=== PATIENT | female | born 1980 | race Caucasian/White ===

== ENCOUNTER → 2024-02-01 18:22 | Outpatient (REF) | payer MEDICARE, MEDICAID, SELFPAY | LOC: MRI 18:22 | PROVIDERS: ATTENDING PHYSICIAN Neurological Surgery; FAMILY PHYSICIAN Nurse Practitioner Adult Health | DX: M54.16 Radiculopathy, lumbar region (principal) | CPT/HCPCS: 72148 ==

== ENCOUNTER → 2024-02-04 16:19 | Outpatient (REF) | payer MEDICARE, MEDICAID, SELFPAY | LOC: RAD 16:19 | PROVIDERS: ATTENDING PHYSICIAN Neurological Surgery; FAMILY PHYSICIAN Nurse Practitioner Adult Health | DX: M54.16 Radiculopathy, lumbar region (principal) | CPT/HCPCS: 72110 ==

== ENCOUNTER 2024-05-08 21:03 | Emergency (ER) | payer MEDICARE, SELFPAY ==
[2024-05-08 21:11] VITALS: BP 124/75
[2024-05-08 22:42] VITALS: BP 114/61
--- NOTE | 2024-05-08 22:53 | ED.GENMED ---
History of Present Illness
<JOANIE Joyner - Last Filed: 05/09/24 04:45>
General
Chief Complaint: Abdominal Pain
Source: patient and family (daughter)
Time Seen by Provider: 05/08/24 22:51
History of Present Illness
History of Present Illness:
Pt is a 43 y/o F with PMHx of celiac disease x23 years and Colitis x3-4 years with complaints of diffuse left sided abdominal pain x4 days. The pain is associated with abdominal bloating, nausea, vomiting, fatigue, malaise, poor appetite, and
orthopnea. The abdominal pain is rated a 5/10 and is worsened with eating food. The left sided abdominal pain radiates into her left sided back and buttock. Course of abdominal pain is worsening. She noted 1 episode of vomiting since onset of
abdominal pain and reported that the emesis was yellow and 'contained bile.' She denies chest pain, headache, diarrhea, constipation, change in urination.
The patient has a pmhx of Celiac disease x23 years, colitis x3-4 years, and pancreatitis x1 year. She also has a history of diabetes and thyroid disorder. The patient's last meal was sweet potato fries for lunch but otherwise she has not eaten since
Sunday or Sunday. LMP was 2 weeks ago but reported that it was unusual and was brown in color. She currently smokes 1/4 PPD and is a nondrinker.
Past History
<JOANIE Joyner - Last Filed: 05/09/24 04:45>
Past History
ED Past Medical History: COPD (Emphysema), Hypercholesterolemia, Other (complex regional pain syndrome, vitamin B12 deficiency) and Other (PAT, hep C., MRSA)
ED Past Surgical History: Orthopedic (Left knee arthroscopy)
Social History
Tobacco: Smoker (08/30 PPD)
Alcohol: None
Drug: Narcotics (Currently taking methadone )
Personal:
Living: with family
Employment: Disabled
Review of Systems
<JOANIE Joyner - Last Filed: 05/09/24 04:45>
Review of Systems
Constitutional: Reports fatigue
EENT: Reports no symptoms
Respiratory: Reports trouble breathing
Cardiac: Reports no symptoms
ABD/GI: Reports abdominal pain, nausea and vomiting
: Reports flank pain
Musculoskeletal: Reports back pain
Skin: Reports no symptoms
Neurological: Reports weakness
Endocrine: Reports no symptoms
Hematologic/Lymphatic: Reports no symptoms
Psychiatric: Reports no symptoms
Phy Exam
<JOANIE Joyner - Last Filed: 05/09/24 04:45>
General Physical Exam
General Presentation: moderate distress
General age: appears stated age
General Skin: warm and dry
General Mental: alert
Cardiovascular Exam
Cardiovascular Exam: regular rate/rhythm and normal peripheral pulses
Pulmonary Exam
Pulmonary Exam: no respiratory distress and chest non tender
Gastrointestinal Exam
Gastrointestinal Exam: no pulsatile mass, distended and tender
Palpation: left upper quadrant: Moderate tenderness, left lower quadrant: Moderate tenderness, right upper quadrant: Minimal tenderness and right lower quadrant: Minimal tenderness
Auscultation of Abdomen: hypoactive
Neurological Exam
Neurological Exam: alert, oriented x3 and speech normal
Skin Exam
Skin Exam: normal color and warm/dry
Psychiatric Exam
Psychiatric Exam: normal mood/affect
Course
<JOANIE Joyner - Last Filed: 05/09/24 04:45>
Orders/Labs/Results
Orders:
Orders
05/08/24 21:16
Test Result ONCE
05/08/24 22:48
Complete Blood Count/With Diff Urgent
Comprehensive Metabolic Panel Urgent
HCG, Serum Qualitative Screen Urgent
Lipase Urgent
05/08/24 23:56
0.9% Sodium Chloride 1000 ml [Nss] 1,000 ml IV BOLUS
05/08/24 23:58
0.9% Sodium Chloride 1000 ml [Nss] 1,000 ml IV BOLUS
05/09/24 00:30
CT Abd/pelvis W Iv Cont Urgent
Reason For Exam: LLQ abd pain
05/09/24 01:07
Ondansetron Injectable [Zofran] 4 mg IV NOW STA
Abnormal Lab Results
05/08/24
22:48
MPV 10.5 H fL
(7.4-10.4)
Absolute Monos (auto) 0.9 H 10^3/uL
(0.1-0.6)
Monocytes % 12.2 H %
(1.7-9.3)
Glucose 103 H mg/dl
(70-99)
05/08/24 22:48
05/08/24 22:48
Vital Signs
Initial and Last Documented VS:
Initial Vital Signs
Temp Pulse Resp BP Pulse Ox
98.6 F 90 18 124/75 97
05/08/24 21:11 05/08/24 21:11 05/08/24 21:11 05/08/24 21:11 05/08/24 21:11
Last Documented Vital Signs
Temp Pulse Resp BP Pulse Ox
98.6 F 90 18 112/75 92
05/08/24 21:11 05/08/24 21:11 05/08/24 21:11 05/09/24 00:00 05/09/24 00:15
<Manuel Martin, DO - Last Filed: 05/09/24 01:04>
Orders/Labs/Results
Orders:
Orders
05/08/24 21:16
Test Result ONCE
05/08/24 22:48
Complete Blood Count/With Diff Urgent
Comprehensive Metabolic Panel Urgent
HCG, Serum Qualitative Screen Urgent
Lipase Urgent
05/08/24 23:56
0.9% Sodium Chloride 1000 ml [Nss] 1,000 ml IV BOLUS
05/08/24 23:58
0.9% Sodium Chloride 1000 ml [Nss] 1,000 ml IV BOLUS
05/09/24 00:30
CT Abd/pelvis W Iv Cont Urgent
Reason For Exam: LLQ abd pain
05/09/24 01:07
Ondansetron Injectable [Zofran] 4 mg IV NOW STA
Abnormal Lab Results
05/08/24
22:48
MPV 10.5 H fL
(7.4-10.4)
Absolute Monos (auto) 0.9 H 10^3/uL
(0.1-0.6)
Monocytes % 12.2 H %
(1.7-9.3)
Glucose 103 H mg/dl
(70-99)
05/08/24 22:48
05/08/24 22:48
Vital Signs
Initial and Last Documented VS:
Initial Vital Signs
Temp Pulse Resp BP Pulse Ox
98.6 F 90 18 124/75 97
05/08/24 21:11 05/08/24 21:11 05/08/24 21:11 05/08/24 21:11 05/08/24 21:11
Last Documented Vital Signs
Temp Pulse Resp BP Pulse Ox
98.6 F 90 18 112/75 92
05/08/24 21:11 05/08/24 21:11 05/08/24 21:11 05/09/24 00:00 05/09/24 00:15
<JOANIE Joyner - Last Filed: 05/09/24 04:45>
MDM/Problems Addressed
Differential Diagnosis Includes:
Enteritis
Diverticulitis
Peritonitis
Large bowel obstruction
<JOANIE Joyner - Last Filed: 05/09/24 04:45>
*Critical Care Note
Total Time (30-74mins, 75-104mins- exclusive of procedures): Not Applicable
<Manuel Martin DO - Last Filed: 05/09/24 01:04>
Update Note
Update Note:
CT AP with contrast
Comparison: 01/31/2023
IMPRESSION:
Slightly prominent fluid in the small bowel can be seen with enteritis or malabsorption but not specific.
Normal appendix.
No calcified gallstones.
No bowel obstruction or bowel wall thickening.
No obstructive urolithiasis.
No free fluid nor free air.
ED Attending Note
<JOANIE Joyner - Last Filed: 05/09/24 04:45>
-
Portions of this chart may have been created with voice recognition software.� Occasional wrong word or��sound alike� substitutions may have occurred due to the inherent limitations of voice recognition software.
<Manuel Martin DO - Last Filed: 05/09/24 01:04>
ED Attending Note
Patient seen and examined by attending physician: Yes
I performed the substantive portion of visit, reviewed & personally made and approve the management plan that is documented in note by myself or LISS.: Yes
ED Attending Note:
Pleasant 43-year-old female presents to the emergency department with left lower quadrant abdominal pain. She states that her pain began on Sunday and has progressively worsening. She states that she has had some abdominal bloating with some
nausea and vomiting. She had a poor appetite. She reports the pain is worse when eating food. She did have 1 episode of none bloody vomitus. She states that it contained bile. Reports no chest pain or shortness of breath. States that the pain
is higher than her typical menstrual cramping.
Vital signs are stable. Patient not hypoxic
Nursing note reviewed. I agree with nursing documentation up to this point in time.
Home Meds and allergies reviewed.
NUMBER AND COMPLEXITY OF PROBLEMS ADDRESSED AT THE ENCOUNTER
� Chronic conditions affecting care: COPD, hyperlipidemia, tobacco use, methadone use, celiac disease
� Acute Exacerbation and/or Progression of Chronic Illness: Celiac disease
� Differential Diagnosis includes: Diverticulitis, IBS, Crohn's/celiac flareup, gastroenteritis
AMOUNT AND/OR COMPLEXITY OF DATA TO BE REVIEWED AND ANALYZED
I performed an independent evaluation of the following and my interpretation is:
EKG:
CT:
X-rays:
Ultrasound:
Laboratory Studies:
Other:
Review of other/old records:
Clinical information was obtained by an independent historian:
Prescriptions/Medications Considered but not given:
Further testing considered but not performed:
RISK OF COMPLICATIONS AND/OR MORBIDITY OR MORTALITY OF PATIENT MANAGEMENT
Social determinants of health affecting care: Good Social Support
Discussion with other providers:
Escalation of care including admission/observation vs risk of discharge considered:
CRITICAL CARE NOTE:
Total Time (exclusive of procedures):
Update:
Discharge Plan
Departure
Patient Disposition: Home (Routine Discharge)
Date of Disposition: 05/09/24
Time of Disposition: 00:59
Patient with high blood pressure during this ER visit?: Yes
Condition: Good
Discharge Problem:
Enteritis
Instructions: Viral gastroenteritis in adults, Abdominal Pain
Prescriptions:
New
ondansetron 4 mg tablet,disintegrating
4 mg PO QID PRN (Reason: nausea and vomiting) Qty: 14 0RF
No Action
omeprazole 40 MG capsule,delayed release(DR/EC)
40 mg PO DAILY
methadone [Methadose] 100 MG/10 ML concentrate
156 mg PO BID@0500,1600
Patient Comments:
01/31/2023: Pt goes to [facility] [phone]. Hours Mo-Fr [id number], Sa [id number], [facility]
ferrous sulfate [FeroSul] 325 MG tablet
325 mg PO DAILY Qty: 30 0RF
quetiapine 25 mg tablet
25 mg PO HS
celecoxib 200 mg capsule
200 mg PO BID
metformin 500 mg tablet
500 mg PO DAILY
baclofen 10 mg tablet
10 mg PO BID
sertraline 25 mg tablet
25 mg PO DAILY
Rx Instructions:
taken w/ 50mg = 75mg
albuterol sulfate 90 mcg/actuation HFA aerosol inhaler
2 puff INHALATION R Q4 PRN (Reason: sob)
guanfacine 2 mg tablet
2 mg PO HS
sertraline 50 mg tablet
50 mg PO DAILY
Rx Instructions:
taken w/ 25mg = 75mg
prazosin 2 mg capsule
2 mg PO HS
Breztri Aerosphere 160-9-4.8 mcg/actuation HFA aerosol inhaler
2 inh INHALATION R BID
Medical Marijuana
1 puff inhalation HS PRN (Reason: mild pain/sleep)
Patient Comments:
01/31/2023: Pt smokes before bed. Pt uses [facility] [phone]
Referrals:
[facility] [Outside]
[facility] [Outside]
NONE,* [Family Provider] -
Activity Restrictions/Additional Instructions:
It was a pleasure meeting you and taking part in your care. We hope for your continued healing and wellness.
Please read discharge instructions in their entirety. However, they are for general education and may not describe your exact diagnosis at discharge. Information on your ER visit and medical conditions were discussed with you along with appropriate
follow up information...
If indicated, please take your medications as instructed and indicated on discharge paperwork.
Please schedule a follow up appointment as directed. Call to schedule an appointment
Please return to the emergency department with ANY change in, persisting, or worsening of symptoms. If any of your symptoms do not improve, or persist, or become more severe within 6-12 hours, please return to the emergency department for further
care.
Please return to the emergency department if you develop a headache, neck pain/stiffness, fever greater than 100.4F, chest pain, shortness of breath, persistent nausea, vomiting, slurred speech, difficulty walking, numbness/tingling, weakness, signs
of infection or any other symptoms that are worrisome to you.
If you have any questions or concerns please do not hesitate to call the Hospital at or E-mail me directly at [email or web address]
Interventions
Interventions:
*Risk Screen - Suicide Last Done: 05/08/24 21:11
*General Assessment Last Done: 05/08/24 21:11
*Neglect/Abuse Screening Last Done: 05/08/24 21:11
*Nursing Disposition Last Done: 05/09/24 01:52
[id number] Assessment Last Done: 05/09/24 00:14
Discharge Date and Time
Discharge Date/Time: 05/09/24 01:52
Print Language: YORUBA
[2024-05-08 22:55] LABS: % Basophils 0.4 % (0-2); % Eosinophils 2.4 % (0-6); % Immature Granulocytes 0.1 % (0-0.5); % Lymphocytes 28.1 % (20.5-51.1); % Monocytes 12.2 % (1.7-9.3); % Neutrophils 56.8 % (42.2-75.2); Absolute Eosinophils 0.2 10^3/uL (0-0.7); Absolute Monocytes 0.9 10^3/uL (0.1-0.6); Absolute Neutrophils 4.1 10^3/uL (1.4-6.5); Hematocrit 41.6 % (37.0-47.0); Hemoglobin 14.2 g/dL (12.0-16.0); Mean Corp Hgb Conc. 34.1 g/dL (33.0-37.0); Mean Corpuscular Hgb 29.5 pg (27.0-31.0); Mean Corpuscular Volume 86.3 fL (81.0-99.0); Mean Platelet Volume 10.5 fL (7.4-10.4); Nucleated Red Blood Cells % 0 %; Platelet Count 275 10^3/uL (130-400); Red Blood Cell Count 4.82 10^6/uL (4.20-5.40); Red Cell Dist. Width 14.5 % (11.5-14.5); White Blood Cell Count 7.2 10^3/uL (4.8-10.8)
[2024-05-08 23:00] VITALS: BP 116/63
[2024-05-08 23:08] LABS: HCG, Serum Qualitative Screen Negative
[2024-05-08 23:13] LABS: ALT (SGPT) 34 U/L (0-35); AST (SGOT) 33 U/L (14-36); Alkaline Phosphatase 78 U/L (38-126); Blood Urea Nitrogen 11 mg/dl (7-17); Calcium 9.5 mg/dl (8.4-10.2); Carbon Dioxide 29 mmol/L (22-30); Chloride 102 mmol/L (98-107); Glucose 103 mg/dl (70-99); Lipase 96 U/L (23-300); Potassium 4.6 mmol/L (3.5-5.1); Sodium 139 mmol/L (135-145); Total Bilirubin 0.3 mg/dl (0.2-1.3); Total Protein 6.7 g/dl (6.3-8.2); eGFR > 60.00
[2024-05-09] VITALS: BP 112/75
[2024-05-09] MEDS: NSS 1000 IV (00:01)
[2024-05-09] MEDS: ZOFRAN 4 MG IV (01:26)
== END 2024-05-09 01:52 | disposition home or self-care (01) ==
LOC: EMR 21:03
PROVIDERS: Student in an Organized Health Care Education/Training Program; EMERGENCY PHYSICIAN Student in an Organized Health Care Education/Training Program
DX: K52.9 Noninfective gastroenteritis and colitis, unspecified (principal); J43.9 Emphysema, unspecified; E78.00 Pure hypercholesterolemia, unspecified; E07.9 Disorder of thyroid, unspecified; E11.9 Type 2 diabetes mellitus without complications; F17.210 Nicotine dependence, cigarettes, uncomplicated; Z86.19 Personal history of other infectious and parasitic diseases
CPT/HCPCS: 99284; 96374; 96361; 74177; 80053; 83690; 84703; 85025; Q9967